=== PATIENT | female | born 1955 | race Caucasian/White ===

== ENCOUNTER 2016-07-09 14:43 | Inpatient (IN) | payer SELFPAY ==
--- NOTE | 2016-07-09 15:22 | EDPRACDOC ---
- General Information Chief Complaint: Generalized Weakness Stated Complaint: LOW HEMOGLOBIN - SENT FROM PCP Time Seen by Provider: 07/09/16 15:08 Mode Of Arrival: Car Home Medications: Home Medications Acetaminophen [Acetaminophen ER] 650 mg PO Q6 PRN 08/04/15 Aspirin (Enteric Coated) [Halfprin] 81 mg PO DAILY 08/04/15 Furosemide [Lasix] 80 mg PO BID 08/04/15 Hydroxychloroquine Sulfate [Plaquenil] 200 mg PO .BID SEE COMMENTS 08/04/15 Lisinopril/Hydrochlorothiazide [Lisinopril-Hctz 20-12.5 mg Tab] 1 tab PO DAILY 08/04/15 Metoprolol Succinate (XL) [Toprol Xl] 25 mg PO DAILY 08/04/15 Mycophenolate Mofetil [Cellcept] 1,500 mg PO BID 08/04/15 Prednisone [Deltasone, Orasone] 10 mg PO DAILY 08/04/15 Corticotropin [Acthar H.p] 80 unit IJ .MON & THURS 10/26/15 Allergies/Adverse Reactions: Allergies Allergy/AdvReac Type Severity Reaction Status Date / Time Penicillins Allergy Severe Hives* Verified 07/09/16 15:07 - History of Present Illness Onset: 5 days Exact Onset of Symptoms: Unknown Date Symptoms Started: 07/03/16 HPI: PATIENT HAS A HX OF LUPUS. HAS HAD LUPUS INDUCED ANEMIA IN THE PAST REQUIRING TRANSFUSIONS. SHE HAS BEEN WEAK FOR WEEKS AND WENT TO PCP YESTERDAY FOR EVALUATION. BLOOD WORK TODAY SHOWED A HGB OF 4. SHE DENIES BLOODY STOOL OR BLACK AND TARRY STOOL. DENIES PRIOR KIDNEY OR LIVER DISEASE Symptoms Started: Reports: Gradually Symptoms Description: Worsening Weakness: Bilateral: Generalized Symptom Severity: Reports: Does not affect activitiy Relevant History of: Reports: Anemia Associated signs and symptoms:: Reports: None ED Past Medical History - History Reviewed Yes Nurses notes reviewed and agree except as marked Travel Outside of [place] in the Last 3 Months?: No - Patient Medical History Cardiac History: Reports: Hypertension, Heart Attack, Cardiac Catheterization Respiratory History: Reports: COPD GI/ History: Reports: Ulcer Systemic History: Reports: Anemia Surgical History: Reports: Hysterectomy, Cardiac Catheterization, Hernia Surgery - Family Medical History Reports: Hypertension (FATHER), Cancer (MOTHER), Cardiac Disorders (FATHER). Denies: Diabetes, Stroke - Social Medical History Smoking Status: Heavy tobacco smoker (5 or more cigarettes/day or daily pipe/ cigar) Lives With: Family Lives In: Home EDM Review of Systems - Review of Systems ROS Negative Except as Marked: Yes All systems reviewed and were negative except as marked Constitutional: Fatigue. negative: Chills, Fever, Loss of Appetite, Weakness Eyes: No Symptoms Reported. negative: Redness, Blurred Vision, Double Vision, Discharge, Pain, Light Sensitive, Photophobia Ears: No Symptoms Reported. negative: Pain, Hearing Loss, Drainage, Ear Pulling Throat: No Symptoms Reported. negative: Pain, Swelling Nose: No Symptoms Reported. negative: Congestion, Bleeding, Discharge, Injection, Swelling, Deformity, Ecchymosis, Tender, Abrasion, Laceration Mouth: No Symptoms Reported. negative: Pain, Drooling Respiratory: No Symptoms Reported. negative: Cough, Brassy Cough, Barky Cough, Shortness of Breath, Wheezing, Hemoptysis Cardiovascular: No Symptoms Reported. negative: Chest Pain, Palpitations, Syncope, Edema, Orthopnea, PND, Skin Mottling, Cyanosis Gastrointestinal: No Symptoms Reported. negative: Pain, Constipation, Nausea, Vomiting, Diarrhea, Melena, Formula Intolerance Genitourinary: No Symptoms Reported. negative: Dysuria, Hematuria, Frequency, Discharge, Bleeding, Testicular Pain, Neurological: No Symptoms Reported. negative: Headache, Dizziness, Seizure, Numbness, Weakness, Speech Difficulty, Gait Difficulty Musculoskeletal: No Symptoms Reported. negative: Neck, Chestwall, Ribs, Back, Shoulder, Arm, Elbow, Forearm, Wrist, Hand, Pelvis, Hip, Femur, Knee, Leg, Ankle , Foot Integumentary: No Symptoms Reported. negative: Itching, Rash, Bruising, Wound Allergic/Immunologic: No Symptoms Reported. negative: Hives, Itching Hematologic: No Symptoms Reported. negative: Lymphadenopathy, Easy Bruising, Easy Bleeding Endocrine: No Symptoms Reported. negative: Weight Gain, Weight Loss Psychiatric: No Symptoms Reported. negative: Anxiety, Depression, Hallucinations, Insomnia, Suicidal - Physical Exam Constitutional: Alert (Awake) Oriented to: Time, Person, Place Last recorded Vital Signs: Last Vital Signs Temp 98.4 F 07/09/16 15:02 Pulse 74 07/09/16 15:02 Resp 20 07/09/16 15:02 BP 161/75 07/09/16 15:02 Pulse Ox 100 07/09/16 15:02 Oxygen Pulse Oxygen Saturation 100 O2 Device Room Air Oxygen Flow Rate Fraction of Inspired Oxygen ( FIO2) - HEENT Head: Normal ( normocephalic) Eye Exam: Pale Conjunctiva Oropharynx: Normal (Pharynx:Moist without exudate,Gums-no swelling) Tympanic Membrane: Normal ENT EAC: Normal TMJ: Normal Nose: No Symptoms Reported (septum midline) Neck: Normal (FROM, trachea at midline) - Respiratory/Cardiovascular Respiratory: Normal - CTA (BBS clear to auscultation without adventitious sounds ) Cardiovascular: Normal (RRR without murmur, gallop or rub) - GI Auscultation: Normal (NABS) Palpation: Normal (Soft,No rebound or guarding, non distended) Tenderness: Non tender López's Sign: Negative Rectal Exam: Normal, Heme negative stool Stool: Brown GI Comment: EDEMA ALONG PELVIS AND ABDOMINAL CINTRON - Bladder: Normal - Musculoskeletal Back: Normal (Non-Tender) Extremities: Edema (3 PLUS EDEMA) - Integumentary Skin: Warm, Dry, Pale Lymphatics: Normal (no adenopathy) - Neurologic Memory Impaired: Normal Motor Function: Normal (Normal tone, Pulses 2+ No cyanosis or edema, FROM) Cranial Nerve: Normal (CN II-X11 intact sensation, strength 5/5) Cerebellar: Normal Mood Description: Normal Thought: Coherent Perception: Normal - Results 07/09/16 15:12 07/09/16 15:12 - EKG EKG #1 EKG Time: 15:18 -: Yes EKG interpreted by me Rate: bpm: 77 Cascade: Normal Rhythm: Afib Hypertrophy: None ST: Normal EKG #2 EKG Time: 16:11 -: Yes EKG interpreted by me Rate: bpm: 76 Cascade: Normal Rhythm: NSR Block: None Hypertrophy: None ST: Nonsp (FLIPPED T-WAVES IN INFERIOR LEADS) - Departure Yes I personally saw and evaluated the patient. Disposition: Admit IP To This Hospital Condition: Fair Final Diagnosis: INDERTERMINATE TROPININ, Weakness, Severe anemia, Macrocytic anemia, Renal insufficiency Instructions: Weakness (General) Education/Counseling Given To: Patient Education/Counseling Given Regarding: Diagnosis, Treatment, Prognosis Referrals: Serina Bedolla MD [Primary Care Provider] - One Week Decision to Admit Time: 16:02 Decision to admit date: 07/09/16 Decision to admit: from ED - Physician Consulted Hospitalist Time Called: 16:02 Provider Called: Errol Olivarez Time Orientation And Mobility Specialist Returned Call: 16:02
[2016-07-09 15:32] LABS: MPV 7.6 fL (7.4-10.4)
[2016-07-09 15:36] LABS: BLOOD UREA NITROGEN 42 MG/DL (7-17); CALC CORRECTED 10.2 MG/DL (8.4-10.2); CALCULATED OSMOLALITY 262 MOs/Kg (270-290); CHLORIDE 102 mEq/L (98-107); GLUCOSE 91 MG/DL (70-99); SODIUM LEVEL 130 mEq/L (137-146); TOTAL PROTEIN 5.2 G/DL (6.3-8.2)
[2016-07-09 15:43] LABS: PARTIAL THROMB. TIME 86.1 SEC (22-35)
[2016-07-09 15:55] LABS: SEG NEUTROPHIL 68 % (45-76)
--- NOTE | 2016-07-09 16:07 | DIRPT ---
CLINICAL DATA: Shortness of breath. EXAM: PORTABLE CHEST 1 VIEW COMPARISON: October 26, 2015. FINDINGS: Stable cardiomegaly. No pneumothorax is noted. Increased left basilar opacity is noted concerning for infiltrate or atelectasis with mild associated pleural effusion. Right lung is clear. Bony thorax is unremarkable. IMPRESSION: Increased left basilar opacity concerning for infiltrate or atelectasis with mild associated pleural effusion. Electronically Signed By: Roland Woody Jr, M.D. On: 07/09/2016 16:05
[2016-07-09] MEDS ORDERED: [UNRECOGNIZED DRUG - OTHER] IJ SCH (16:15)
[2016-07-09 16:16] LABS: % SATURATION 32.2 % (15-50)
[2016-07-09] MEDS ORDERED: ALBUTEROL 0.083% 3 ML NEB NEB PRN (16:30)
[2016-07-09] MEDS ORDERED: ACETAMINOPHEN 325 MG/TAB TABLET PO PRN (16:30)
--- NOTE | 2016-07-09 17:05 | HISTPHYS ---
- Chief Complaint Weakness, cough - History of Present Illness This is a pleasant 61-year-old female with a history of SLE, CAD, CHF was being admitted to the hospital due to weakness and severe anemia. The patient does have a history of lupus, she is not on her medications completely due to lack of health insurance. She has had a prior episode of lupus associated anemia which was treated several years ago with multiple blood transfusions. She notes that for the last several days, she has been feeling weak she went to see her primary care physician yesterday and the lab drawn yesterday revealed severe anemia. She also tells me that she has had some cough and shortness of breath, with wheezing and rapidly breath for the last several days, and she felt like she may have a colder pneumonia developing. She also notes that she has had some swelling in her bilateral lower extremities for the last several days. She takes Lasix at home. - Medical History Cardiac History: Reports: Hypertension, Heart Attack, Cardiac Catheterization Respiratory History: Reports: COPD GI/ History: Reports: Ulcer Systemic History: Reports: Anemia - Surgical History Reports: Hysterectomy, Cardiac Catheterization, Hernia Surgery - Medictions/Allergies Allergies Penicillins Allergy (Severe, Verified 07/09/16 15:07) Hives* Home Medications Acetaminophen [Acetaminophen ER] 650 mg PO Q6 PRN 08/04/15 Aspirin (Enteric Coated) [Halfprin] 81 mg PO DAILY 08/04/15 Furosemide [Lasix] 80 mg PO BID 08/04/15 Hydroxychloroquine Sulfate [Plaquenil] 200 mg PO .BID SEE COMMENTS 08/04/15 Lisinopril/Hydrochlorothiazide [Lisinopril-Hctz 20-12.5 mg Tab] 1 tab PO DAILY 08/04/15 Metoprolol Succinate (XL) [Toprol Xl] 25 mg PO DAILY 08/04/15 Mycophenolate Mofetil [Cellcept] 1,500 mg PO BID 08/04/15 Prednisone [Deltasone, Orasone] 10 mg PO DAILY 08/04/15 Corticotropin [Acthar H.p] 80 unit IJ .MON & THURS 10/26/15 - Family History Reports: Hypertension (FATHER), Cancer (MOTHER), Cardiac Disorders (FATHER). Denies: Diabetes, Stroke - Social History Smoking Status: Heavy tobacco smoker (5 or more cigarettes/day or daily pipe/ cigar) - Review of Systems Yes All systems reviewed and were negative except as marked (And as mentioned in the history of present illness above.) - Physical Exam Vital Signs: Initial Vitals Temperature 98.4 F 07/09/16 15:02 Pulse Rate 74 07/09/16 15:02 Respiratory Rate 20 07/09/16 15:02 Blood Pressure 161/75 07/09/16 15:02 Pulse Oxygen Saturation 100 07/09/16 15:02 Constitutional: Alert (Awake, Fully oriented, well appearing. No apparent distress) Oriented to: Time, Person, Place - HEENT Head: Normal (normocephalic,atraumatic, trachea midline) Eye: Normal (EOMI, Sclera white) Oropharynx: Normal (moist) Nose: No Symptoms Reported (without discharge or bleeding) Respiratory: Diminished, Rales, Rhonchi, Tachypnea, Wheezes Cardiovascular: Normal (RRR, no murmurs, rubs or gallops) - GI Palpation: Normal (soft, non distended and nontender) - Musculoskeletal Extremities: Normal (normal tone, no cyanosis or edema), Edema (She has 2 to 3+ pitting edema in the bilateral lower extremities up to the mid thigh.) - Integumentary Skin: Normal (no rashes or lesions) - Neurologic Cranial Nerve: Normal (CN II-XII intact) Mood Description: Normal (Fully oriented and appropiate affect) - Focused CV Perfusion Exam Vital Signs: Last Vital Signs Temp 98.4 F 07/09/16 15:02 Pulse 67 07/09/16 16:57 Resp 18 07/09/16 16:57 BP 144/70 07/09/16 16:57 Pulse Ox 91 07/09/16 16:57 - Lab Results Laboratory Tests 07/09/16 07/09/16 07/09/16 15:12 15:12 15:12 WBC 11.5 H Hgb 4.5 L* Hct 13.7 L Plt Count 309 Retic Count (auto) INR 1.0 Sodium 130 L Potassium 4.4 BUN 42 H Creatinine 1.20 H Iron TIBC Troponin I 0.32 Total Protein 5.2 L Albumin 1.8 L 07/09/16 07/09/16 15:12 15:12 WBC Hgb Hct Plt Count Retic Count (auto) 13.6 H INR Sodium Potassium BUN Creatinine Iron 67.0 TIBC 208 L Troponin I Total Protein Albumin - Diagnostic Findings Chest x-ray: Stable cardiomegaly. No pneumothorax is noted. Increased left basilar opacity is noted concerning for infiltrate or atelectasis with mild associated pleural effusion. Right lung is clear. Bony thorax is unremarkable. 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 Note stool guaiac was negative. Will also check LDH and haptoglobin to confirm this diagnosis. In the meantime, will transfuse her a total of 4 units of blood today, along with IV Lasix as mentioned below due to fluid overload. Will also start p.o. prednisone, which can be tapered down once her hemoglobin starts to rise and her reticulocyte count improves. Will follow reticulocyte count and hemoglobin daily. (2) SLE (systemic lupus erythematosus) M32.9 - SYSTEMIC LUPUS ERYTHEMATOSUS, UNSPECIFIED Acute She has a history of lupus, she is taking her CellCept has not been able to afford her Plaquenil since she lost her health insurance. She has had lupus associated anemia in the past, treated with transfusion. She is also on chronic p.o. steroids. (3) CAD (coronary artery disease) I25.10 - ATHSCL HEART DISEASE OF [place] CORONARY ARTERY W/O ANG PCTRS Acute She has history of prior myocardial infarction. See elevated troponin below. (4) Elevated troponin R79.89 - OTHER SPECIFIED ABNORMAL FINDINGS OF BLOOD CHEMISTRY Acute She has an elevated troponin at 0.3 this afternoon. This is in the setting of her severe anemia, which I think is causing reduced myocardial profusion. The patient is without any chest pain, is hemodynamically stable. She is on a beta- amarilys at home, has a prior history of myocardial infarction. Will start the patient on other myocardial protective medications including aspirin, statin. Once her hemoglobin is improved will give her full-dose Lovenox anticoagulation. Could consider Cardiology consultation for possible stress testing once her hemoglobin is more acceptable range. (5) Acute heart failure I50.9 - HEART FAILURE, UNSPECIFIED Acute Patient presents with small amount of pulmonary edema and effusion, as well as impressive bilateral lower extremity edema. She takes Lasix at home, will diurese aggressively with IV Lasix, fluid restrict and keep her on a sodium restricted diet. Will use acute heart failure evidence based care order set. Will also obtain 2D Doppler with ECHO. (6) Renal insufficiency N28.9 - DISORDER OF KIDNEY AND URETER, UNSPECIFIED Acute She has some renal insufficiency today, likely a result of poor renal perfusion from her impressive anemia, as well as partially due to fluid overload related to her acute heart failure. Will transfuse blood as mentioned above, and also diurese her somewhat aggressively in an effort to improve renal perfusion. Recheck renal function daily, and will avoid other nephro toxic agents. (7) Weakness R53.1 - WEAKNESS Acute Likely due to her anemia, treating as above. I have placed on fall precautions, she is not to ambulate without assistance. (8) Bronchopneumonia J18.0 - BRONCHOPNEUMONIA, UNSPECIFIED ORGANISM Acute Patient not hypoxic, but has complaints of congestion and cough productive of sputum over the last few days. She also has chest x-ray abnormalities. As such, will treat with empiric IV azithromycin and Rocephin. - Plan In summary this patient is acutely and critically ill. The patient requires treatment of vital organ failure and measures to prevent further life- threatening deterioration of the above conditions. I personally reviewed and ordered lab testing, as well as imaging. I reviewed old medical records from previous hospitalizations as available, and spent the time mentioned below in critical care of this patient including counseling and coordination of care. Case Care Discussed with: Patient, Nursing Staff Total Time: 95 Critical Care: Yes Couseling Time (>50% in counseling/coordination): Yes
[2016-07-09] MEDS: CEFTRIAXONE 1 GM in D5W 100 ML IV SCH (17:30)
[2016-07-09] MEDS: NS/KCl 20 mEq 1,000 ML IV SCH (17:37)
[2016-07-09] MEDS ORDERED: AZITHROMYCIN 500 MG in D5W 250 ML IV SCH (18:00)
[2016-07-09] MEDS ORDERED: Vaccine Screening Complete SCH (18:00)
[2016-07-09] MEDS ORDERED: Pharmacy Order Set Alert SCH (18:00)
[2016-07-09] MEDS: PREDNISONE 20 MG TAB PO SCH (18:36)
[2016-07-09] MEDS: ATORVASTATIN 20 MG TAB PO SCH (18:36)
[2016-07-09] MEDS: FUROSEMIDE 40 MG/4 ML VIAL IV SCH (18:38)
[2016-07-09] MEDS ORDERED: DIPHENHYDRAMINE 50 MG/ML VIAL IV ONE (19:00)
[2016-07-09] MEDS ORDERED: DIPHENHYDRAMINE 50 MG/ML VIAL ONE (19:02)
[2016-07-09] MEDS: Mycophenolate Mofetil 250 MG CAP PO SCH (20:16)
[2016-07-09] MEDS: AZITHROMYCIN 500 MG in D5W 250 ML IV SCH (20:16)
[2016-07-10] MEDS: hydrALAZINE 20 MG/ML VIAL IV PRN ×3 (01:42→22:18)
[2016-07-10 05:33] LABS: BLOOD UREA NITROGEN 43 MG/DL (7-17); CALCULATED OSMOLALITY 262 MOs/Kg (270-290); CHLORIDE 103 mEq/L (98-107); GLUCOSE 140 MG/DL (70-99); LDL (calc.) 132.2 MG/DL (<100); SODIUM LEVEL 129 mEq/L (137-146); VLDL (calc.) 30.8 MG/DL (5-40)
[2016-07-10] MEDS: FUROSEMIDE 40 MG/4 ML VIAL IV SCH ×2 (05:42→16:16)
[2016-07-10] MEDS: NS/KCl 20 mEq 1,000 ML IV SCH ×2 (05:43→17:25)
[2016-07-10] MEDS ORDERED: FLU VACCINE (Afluria) 0.5 ML DOSE IM ONE (08:00)
[2016-07-10] MEDS: Mycophenolate Mofetil 250 MG CAP PO SCH ×2 (08:02→20:27)
[2016-07-10] MEDS: ATORVASTATIN 20 MG TAB PO SCH (08:03)
[2016-07-10] MEDS ORDERED: METOPROLOL (TOPROL-XL) 25 MG TAB PO SCH (09:00)
--- NOTE | 2016-07-10 09:09 | GENMEDPROG ---
Chief Complaint: Anemia Subjective Note: Tolerated blood transfusion yesterday, she is feeling much better this morning, with increased energy. Her legs are also feeling much better already, feeling less tight she was able to move them more easily. She is a sitting up at the bedside this morning eating breakfast. Notes Reviewed: Yes Events from last night noted and discussed with Clinical Staff Current Medication List: Reviewed DVT Prophylaxis: Yes - Physical Examination Vital Signs and I&O: Last Vital Signs Temp 98.5 F 07/10/16 07:41 Pulse 76 07/10/16 07:41 Resp 18 07/10/16 07:41 BP 178/94 07/10/16 07:41 Pulse Ox 99 07/10/16 06:41 Oxygen Pulse Oxygen Saturation 99 O2 Device Room Air Oxygen Flow Rate Fraction of Inspired Oxygen ( FIO2) Intake & Output 07/08/16 07/09/16 07/10/16 07/11/16 06:59 06:59 06:59 06:59 Intake Total 1183 388 Output Total 950 Balance 233 388 Patient's weight 66.395 kg General: Alert, Oriented x3, No acute distress, Well appearing, Well nourished, Other (Normal and appropriate affect) HEENT: EOMI (Sclera white) Neck: Normal Trachea alignment, Normal inspection Respiratory: Diminished, Rales, Rhonchi, Tachypnea, Wheezes Cardiovascular: Regular rate, No Gallops,Rubs/Murmurs GI: Normal bowel sounds, Soft, Non tender (non distended) Lab/DI/Studies Reviewed: Laboratory Tests 07/09/16 07/10/16 07/10/16 15:12 04:30 04:30 WBC 14.5 H Hgb 4.5 L* 8.9 L D Potassium 4.3 BUN 43 H Creatinine 1.20 H - Assessment (1) Severe anemia Acute D64.9 - ANEMIA, UNSPECIFIED Comment/Plan: Reason for admission, 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 Note stool guaiac was negative. Responded well to transfusion, will need to follow serial reticulocyte count. She was also started on p.o. prednisone, have consulted Dr. Porter of Oncology this morning for his input. (2) SLE (systemic lupus erythematosus) Acute M32.9 - SYSTEMIC LUPUS ERYTHEMATOSUS, UNSPECIFIED Comment/Plan: She has a history of lupus, she is taking her CellCept has not been able to afford her Plaquenil since she lost her health insurance. She has had lupus associated anemia in the past, treated with transfusion. She is also on chronic p.o. steroids. (3) CAD (coronary artery disease) Acute I25.10 - ATHSCL HEART DISEASE OF [place] CORONARY ARTERY W/O ANG PCTRS Comment/Plan: She has history of prior myocardial infarction. See elevated troponin below. (4) Elevated troponin Acute R79.89 - OTHER SPECIFIED ABNORMAL FINDINGS OF BLOOD CHEMISTRY Comment/ Plan: Patient's troponin was elevated to chowdary zone at the time of admission, has remained stable. At this point, I do not think she is experiencing and acute cardiac event, but rather this is related to her renal insufficiency. (5) Acute heart failure Acute I50.9 - HEART FAILURE, UNSPECIFIED Comment/Plan: Patient presents with small amount of pulmonary edema and effusion, as well as impressive bilateral lower extremity edema. She takes Lasix at home, will diurese aggressively with IV Lasix, fluid restrict and keep her on a sodium restricted diet. Will use acute heart failure evidence based care order set. Will also obtain 2D Doppler with ECHO. (6) Renal insufficiency Acute N28.9 - DISORDER OF KIDNEY AND URETER, UNSPECIFIED Comment/Plan: She has some renal insufficiency today, likely a result of poor renal perfusion from her impressive anemia, as well as partially due to fluid overload related to her acute heart failure. Will transfuse blood as mentioned above, and also diurese her somewhat aggressively in an effort to improve renal perfusion. Recheck renal function daily, and will avoid other nephro toxic agents. (7) Weakness Acute R53.1 - WEAKNESS Comment/Plan: Likely due to her anemia, treating as above. I have placed on fall precautions, she is not to ambulate without assistance. (8) Bronchopneumonia Acute J18.0 - BRONCHOPNEUMONIA, UNSPECIFIED ORGANISM Comment/Plan: Patient not hypoxic, but has complaints of congestion and cough productive of sputum over the last few days. She also has chest x-ray abnormalities. As such, will treat with empiric IV azithromycin and Rocephin. Case Care Discussed with: Patient, Consultants, Nursing Staff Total Time: 49
[2016-07-10] MEDS ORDERED: [UNRECOGNIZED DRUG - OTHER] IM ONE (09:35)
[2016-07-10] MEDS ORDERED: PNEUMOCOCCAL 0.5 ML VIAL IM ONE (09:35)
[2016-07-10] MEDS ORDERED: [UNRECOGNIZED DRUG - OTHER] IM ONE (09:35)
[2016-07-10] MEDS: ACETAMINOPHEN 325 MG/TAB TABLET PO PRN ×2 (11:26→20:38)
[2016-07-10] MEDS ORDERED: POTASSIUM CHLORIDE 20 MEQ TAB PO SCH (12:00)
[2016-07-10] MEDS: PREDNISONE 20 MG TAB PO SCH ×2 (12:08→16:16)
--- NOTE | 2016-07-10 14:03 | CAPUECHO ---
INDICATION: HEART FAILURE--DETERMINE EJECTION FRACTION HEIGHT: 162.6 cm (5 ft 4.0 in) WEIGHT: 64.4 kg (142.0 lbs) BP: 175/89 BSA: 1.26946 m MEASUREMENTS 2D RVIDd: 2.6 cm LVOT Diam: 1.9 cm LA Diam: 4.0 cm EF Biplane: 50.85 % LAESV MOD A4C: 31.6 ml LAESV MOD A2C: 60.9 ml LAESV Index (A-L): 30.11 ml/m M-MODE IVSd: 0.6 cm LVIDd: 5.9 cm LVPWd: 0.9 cm LVIDs: 4.1 cm EF(Teich): 56 % Ao Diam: 3.3 cm LA Diam: 3.9 cm DOPPLER MV E Neptali: 1.36 m/s MV A Neptali: 0.94 m/s MV PHT: 33.07 ms MVA By PHT: 6.65 cm LVOT Vmax: 1.14 m/s AV Vmax: 1.60 m/s ESHA Vmax, Pt: 2.01 cm TR Vmax: 2.98 m/s TR maxP mmHg RVSP: 55.20 mmHg FINDINGS ------- Procedure:2D images, m-mode, color and spectral Doppler were obtained and reviewed. ECG rhythm:Undetermined rhythm. Study quality:This was a technically adequate study. Per patient COPD, HX of CT, CATH, CABG x 2 200 2. Left Ventricle:The left ventricle is moderately dilated. There is borderline concentric left ventr icular hypertrophy. There is normal global left ventricular contractility. Overall left ventricu lar systolic function is low-normal with, an EF between 50 - 55 %. The diastolic filling pattern i ndicates impaired relaxation. Right Ventricle:The right ventricle is normal in size and function. Left Atrium:The left atrium is mildly dilated. Right Atrium:The right atrium is normal in size and function. Aortic Valve:The aortic valve is trileaflet and appears structurally normal. There is mild aortic valve sclerosis. Trace to mild aortic regurgitation. The aortic pressure half-time by doppler is 482ms. Mitral Valve:Normal appearing mitral valve. Mild mitral regurgitation is present. Tricuspid Valve:The tricuspid valve appears structurally normal. [id number] tricuspid regurg itation present. The right ventricular systolic pressure, as measured by Doppler, is 55mmHg. Pulmonic Valve:The pulmonic valve is normal. Trace/mild (physiologic) pulmonic regurgitation. Aorta:The aortic root, ascending aorta and aortic arch appear normal. IVC:The inferior vena cava is mildly dilated, <50% collapse. Pericardium:Echo free space may represent effusion or a pericardial fat pad. There is a small, gen eralized pericardial effusion present. CONCLUSIONS 1. The left ventricle is moderately dilated. 2. There is borderline concentric left ventricular hypertrophy. 3. Overall left ventricular systolic function is low-normal with, an EF between 50 - 55 %. 4. The diastolic filling pattern indicates impaired relaxation. 5. The left atrium is mildly dilated. 6. There is mild aortic valve sclerosis. 7. Trace to mild aortic regurgitation. 8. Mild mitral regurgitation is present. 9. [id number] tricuspid regurgitation present. 10. The right ventricular systolic pressure, as measured by Doppler, is 55mmHg. 11. The inferior vena cava is mildly dilated, <50% collapse. 12. There is a small, generalized pericardial effusion present. Pleural effusion suspected. Clnical correlation suggested Electronically Signed By: Ketan Singh MD -- Electronically Signed On: 14:03:11
[2016-07-10] MEDS: CEFTRIAXONE 1 GM in D5W 100 ML IV SCH (16:16)
[2016-07-10] MEDS: AZITHROMYCIN 500 MG in D5W 250 ML IV SCH (20:26)
--- NOTE | 2016-07-11 00:34 | PMOCONSULT ---
Date of Service:: 07/10/16 Medical Oncology Consultation: HISTORY OF PRESENT ILLNESS: The patient is a 61-year-old woman who I was asked to consult upon for severe anemia. Her history dates back 2 days ago when she presented to her primary care office with flu-like symptoms. The patient had earaches and a productive cough of clear phlegm. At that visit, she was given intramuscular antibiotics. The patient also claims she has been progressively short of breath. She claims she has been unable to walk 20-30 ft over these past few months without becoming profoundly short of breath. During her workup at her primary care office, routine labs were done, which showed a severely low hemoglobin. It was recommended that she go to the hospital immediately for further evaluation. However, as she felt very poorly and had been out all day, the patient wanted to go home to rest before coming into the hospital the following day. The patient did come into the ER the following morning; lab work done at that time showed an extremely low hemoglobin of only 4.4. Based upon this, the patient was admitted. She has been given 4 units of blood thus far. According to the patient, she denies having any overt forms of blood loss over the past few weeks, such as hemoptysis, hematemesis, hematochezia, hematuria, or vaginal bleeding. She recalls having anemia 3 years ago, for which 2 units of blood were given. The patient does have a diagnosis of lupus. She believes her low hemoglobin 3 years ago may have been during the time of an acute lupus flare. She chronically takes prednisone 10 mg daily, which she has been on for at least the past 10 years. To her knowledge, there is no family history of any underlying hematologic disorders. PAST MEDICAL HISTORY: Lupus, COPD, hypertension, coronary artery disease PAST SURGICAL HISTORY: Bilateral fem-pop bypass, hysterectomy, left inguinal hernia surgery, benign right breast lumpectomy CURRENT MEDICATIONS: Acetaminophen Acetaminophen ER 650 mg PO Q6 PRN 08/04/15 Aspirin (Enteric Coated) Halfprin 81 mg PO DAILY 08/04/15 Furosemide Lasix 80 mg PO BID 08/04/15 Hydroxychloroquine Sulfate Plaquenil 200 mg PO .BID SEE COMMENTS 08/04/15 Lisinopril/Hydrochlorothiazide Lisinopril-Hctz 20-12.5 mg Tab 1 tab PO DAILY 11/12 Metoprolol Succinate (XL) Toprol Xl 25 mg PO DAILY 08/04/15 Mycophenolate Mofetil Cellcept 1,500 mg PO BID 08/04/15 Prednisone Deltasone, Orasone 10 mg PO DAILY 08/04/15 Corticotropin Acthar H.p 80 unit IJ .MON & THURS 10/26/15 ALLERGIES: Penicillin FAMILY HISTORY: Her mother from an unspecified genitourinary malignancy. Her father from a heart attack. She had 2 brothers, 1 of whom in a motor vehicle accident. Her other brother from alcoholic cirrhosis. She has 3 sisters, all of whom are relatively healthy. SOCIAL HISTORY: The patient was born and raised in [facility]. She currently lives in town. She has 1 child and 1 grandchild. 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 The patient has smoked as much as a pack of cigarettes daily for the past 35 years. She denies a history of alcoholism. REVIEW OF SYSTEMS: BANQUET CHEF: The patient has occasional headaches, but denies changes in hearing, vision , balance or coordination. PULMONARY: The patient has a productive cough of clear phlegm and dyspnea upon exertion. CARDIAC: The patient denies angina, heart palpitations, or heart failure issues. GI: The patient has mild constipation, but denies nausea, vomiting, diarrhea, hematochezia, or weight loss. : The patient denies hematuria, dysuria, or increased urinary frequency. MUSCULOSKELETAL: The patient denies arthralgias, myalgias, or joint effusions. ENDOCRINE: The patient denies diabetes, hypercholesterolemia, thyroid, or pituitary gland disorders. PSYCHIATRIC: The patient denies depression, anxiety, or other mood disorders. DERMATOLOGIC: The patient denies petechia, purpura, but claims to bruise easily. CONSTITUTION: The patient denies fevers, night sweats, but has a decreased energy level. PHYSICAL EXAMINATION: Vital signs include a temperature of 98, pulse 71, respirations 20, blood pressure 184/88 GENERAL: The patient is alert and oriented x3, in no acute distress. HEENT EXAM: Clear oropharynx with no exudate or lesions appreciated. LUNG EXAM: Clear to auscultation bilaterally. CARDIAC EXAM: Regular rate and rhythm. No murmurs, rubs, or gallops. ABDOMINAL EXAM: Soft, nontender and nondistended; no hepatosplenomegaly. EXTREMITY EXAM: No clubbing, cyanosis, or edema. LYMPH NODE SURVEY: No palpable cervical, supraclavicular, axillary, or inguinal lymphadenopathy. NEUROLOGIC EXAM: Cranial nerves II-XII and cerebellar functions are grossly intact. SKIN EXAM: No petechiae, purpura or other abnormal skin lesions are appreciated. LABORATORY DATA: Laboratory Tests 07/09/16 07/09/16 07/09/16 13:48 15:12 15:12 WBC 10.8 Hgb 4.4 L* Hct 12.8 L Plt Count 300 Retic Count (auto) 13.6 H Haptoglobin Lactate Dehydrogenase Antibody Identification WARM AUTO-ANTIBODY CRISTEL, IgG Interpret Positive H CRISTEL, Poly Interpret Positive H 07/09/16 07/09/16 15:12 15:12 WBC Hgb Hct Plt Count Retic Count (auto) Haptoglobin < 10 L Lactate Dehydrogenase 737 H Antibody Identification CRISTEL, IgG Interpret CRISTEL, Poly Interpret ASSESSMENT AND PLAN: A 61-year-old woman whose labs all point to her having autoimmune hemolytic anemia. This is based upon her having an undetectable haptoglobin, an elevated LDH, and a positive direct Dale test. As mentioned previously, the patient denies having any overt forms of blood loss, which suggests her severe anemia is due to hemolysis. She is currently taking prednisone 40 mg b.i.d.. Over these next few weeks, this patient will be placed on a slow taper to prevent her autoimmune hemolytic anemia from flaring back up and leading to a severely low hemoglobin over time. I will likely decrease her prednisone dose by 10 mg per week until she gets back to her 10 mg daily dose. If her autoimmune hemolytic anemia resurfaces while going through her prednisone taper, the patient understands a splenectomy would be next, which is approximately 80% effective in preventing recurrent bouts of autoimmune hemolytic anemia. Per her history and physical exam, I do not get the sense she is in an acute lupus flare; this appears to be idiopathic autoimmune hemolytic anemia. In preparation for her possibly needing a splenectomy in the near future, I do want this patient to receive the pneumococcal, meningococcal, and Haemophilus influenza type B vaccinations while in the hospital. While in the hospital, her hemoglobin should be kept near 10. I have already scheduled to see her on July 18, to follow the status of her autoimmune hemolytic anemia as an outpatient. The patient understands all the plans discussed at the bedside this afternoon and is in agreement with them.
[2016-07-11 06:10] VITALS: BMI 26.1
[2016-07-11 06:39] LABS: MPV 7.9 fL (7.4-10.4)
[2016-07-11 06:44] LABS: BLOOD UREA NITROGEN 44 MG/DL (7-17); CALCIUM 7.9 MG/DL (8.4-10.2); CALCULATED OSMOLALITY 261 MOs/Kg (270-290); CHLORIDE 102 mEq/L (98-107); GLUCOSE 120 MG/DL (70-99); SODIUM LEVEL 129 mEq/L (137-146)
[2016-07-11] MEDS: ACETAMINOPHEN 325 MG/TAB TABLET PO PRN (07:11)
[2016-07-11] MEDS: NS/KCl 20 mEq 1,000 ML IV SCH (07:14)
[2016-07-11] MEDS: PREDNISONE 20 MG TAB PO SCH (07:44)
[2016-07-11] MEDS: FUROSEMIDE 40 MG/4 ML VIAL IV SCH (07:45)
[2016-07-11] MEDS ORDERED: [UNRECOGNIZED DRUG - OTHER] IM ONE (08:00)
[2016-07-11] MEDS ORDERED: [UNRECOGNIZED DRUG - OTHER] IM ONE (08:00)
--- NOTE | 2016-07-11 08:58 | PCM.DCS92 ---
- Final/Secondary Discharge Diagnosis (1) Autoimmune hemolytic anemia Acute D59.1 - OTHER AUTOIMMUNE HEMOLYTIC ANEMIAS Present on Admission: Yes Comment: After evaluation by hematology, it seems her anemia is due to an autoimmune hemolytic anemia, rather than an acute exacerbation of her SLE. She will follow-up with Dr. Porter in his clinic. (2) Elevated troponin Acute R79.89 - OTHER SPECIFIED ABNORMAL FINDINGS OF BLOOD CHEMISTRY Present on Admission: Yes Comment: Patient's troponin was elevated to chowdary zone at the time of admission, & has remained stable. At this point, I do not think she is experiencing an acute cardiac event, but rather this is related to her renal insufficiency. (3) Renal insufficiency Acute N28.9 - DISORDER OF KIDNEY AND URETER, UNSPECIFIED Present on Admission: Yes Comment: She has some renal insufficiency, likely a result of poor renal perfusion from her impressive anemia, as well as partially due to fluid overload related to her acute heart failure. She was transfused blood as mentioned above, and also diuresed somewhat aggressively in an effort to improve renal perfusion. Rechecked renal function daily, reduced SHARI-inhibitor dose and avoid other nephrotoxic agents. (4) CKD (chronic kidney disease), stage III Chronic N18.3 - CHRONIC KIDNEY DISEASE, STAGE 3 (MODERATE) Present on Admission: Yes Comment: Presumably due to the effects of her Lupus. (5) Bronchopneumonia Acute J18.0 - BRONCHOPNEUMONIA, UNSPECIFIED ORGANISM Present on Admission: Yes Comment: Patient was not hypoxic, but had complainted of congestion and cough productive of sputum over the last few days. She also had chest x-ray abnormalities. As such, she was treated with empiric IV azithromycin and Rocephin for 3 days, and discharged home on PO Ceftin. (6) Diastolic CHF, acute Acute I50.31 - ACUTE DIASTOLIC (CONGESTIVE) HEART FAILURE Present on Admission: Yes Comment: DUE TO ACUTE ANEMIA (7) SLE (systemic lupus erythematosus) Chronic M32.9 - SYSTEMIC LUPUS ERYTHEMATOSUS, UNSPECIFIED Present on Admission: Yes other unspecified M32.8 - Other forms of systemic lupus erythematosus Comment: She has a history of lupus, she is taking her CellCept, but has not been able to afford her Plaquenil since she lost her health insurance. She is also on chronic p.o. steroids. it does not appear that an ESR or CRP has been ordered during this admission to determine the status of her SLE treatment. We will request these prior to discharge. She may follow-up with Dr. Bedolla regarding her SLE. Discharge Disposition: Home Discharge Condition: Improved Cognitive Discharge Status: Unimpaired Fuctional Discharge Status: Independent Physician Follow up/Referrals: Joel Porter MD [Staff Physician] - One Week Serina Bedolla MD [Primary Care Provider] - 1-2 weeks New Prescriptions: Albuterol Sulfate MDI [Proventil HFA] 2 puff INH Q4-6H PRN #1 inhaler PRN Reason: Wheezing Atorvastatin Calcium [Lipitor] 20 mg PO DAILY #30 tablet Cefuroxime Axetil [Ceftin] 500 mg PO BID #14 tablet Furosemide [Lasix] 40 mg PO BID #60 tablet Lisinopril [Prinivil] 5 mg PO DAILY #30 tab POTASSIUM CHLORIDE Tablet [K-DUR 20 mEq Tablet*] 20 meq PO DAILY@1200 #30 tab.er.prt Prednisone [Deltasone, Orasone] 20 mg PO DAILY #60 tablet Prednisone [Deltasone, Orasone] 40 mg PO DAILYWM #7 tablet Discharge Home Medication List Acetaminophen [Acetaminophen ER] 650 mg PO Q6 PRN 08/04/15 [History Confirmed Last Taken 07/09/16 1300MG] Aspirin (Enteric Coated) [Halfprin] 81 mg PO DAILY 08/04/15 [History Confirmed 07/09/16 Last Taken 07/08/16] Metoprolol Succinate (XL) [Toprol Xl] 25 mg PO DAILY 08/04/15 [History Confirmed 07/09/16 Last Taken 07/08/16] Mycophenolate Mofetil [Cellcept] 1,500 mg PO BID 08/04/15 [History Confirmed 04/15 Last Taken 07/08/16] Corticotropin [H.p. Acthar] 80 unit IJ .MON & THURS 10/26/15 [History Confirmed 07/09/16 Last Taken 07/08/16] Albuterol Sulfate MDI [Proventil HFA] 2 puff INH Q4-6H PRN #1 inhaler 07/11/16 [ Rx Last Taken Unknown] Atorvastatin Calcium [Lipitor] 20 mg PO DAILY #30 tablet 07/11/16 [Rx Last Taken Unknown] Cefuroxime Axetil [Ceftin] 500 mg PO BID #14 tablet 07/11/16 [Rx Last Taken Unknown] Furosemide [Lasix] 40 mg PO BID #60 tablet 07/11/16 [Rx Last Taken Unknown] Lisinopril [Prinivil] 5 mg PO DAILY #30 tab 07/11/16 [Rx Last Taken Unknown] POTASSIUM CHLORIDE Tablet [K-DUR 20 mEq Tablet*] 20 meq PO DAILY@1200 #30 tab.er.prt 07/11/16 [Rx Last Taken Unknown] Prednisone [Deltasone, Orasone] 20 mg PO DAILY #60 tablet 07/11/16 [Rx Last Taken Unknown] Prednisone [Deltasone, Orasone] 40 mg PO DAILYWM #7 tablet 07/11/16 [Rx Last Taken Unknown] O2 Device: Room Air Diet at Discharge: Heart Healthy Activity: As Tolerated Call Office For: Worsening Symptoms, Fever over 101 F Discontinue use of:: Alcohol, All Illegal Substances, All Types of Tobacco - DC Summary Notes Hospital Course Note:: Discharge summary on patient named MICK HERNANDEZ admitted to [facility] on 07/09/16 by Errol Olivarez MD. Date of discharge is []. This is a pleasant 61-year-old female with a history of SLE, CAD, CHF was being admitted to the hospital due to weakness and severe anemia. The patient does have a history of lupus, she is not on her medications completely due to lack of health insurance. She has had a prior episode of lupus associated anemia which was treated several years ago with multiple blood transfusions. She notes that for the last several days, she has been feeling weak she went to see her primary care physician yesterday and the lab drawn yesterday revealed severe anemia. She also tells me that she has had some cough and shortness of breath, with wheezing and rapidly breath for the last several days, and she felt like she may have a cold or pneumonia developing. She also notes that she has had some swelling in her bilateral lower extremities for the last several days. She takes Lasix at home. The patient was markedly anemic with a hemoglobin of 4.4 at the time of admission. She was transfused 4 units of packed red cells. She has some renal insufficiency, likely a result of poor renal perfusion from her impressive anemia, as well as partially due to fluid overload related to her acute heart failure. She was transfused blood as mentioned above, and also diuresed somewhat aggressively in an effort to improve renal perfusion. Rechecked renal function daily, reduced SHARI-inhibitor dose and avoid other nephrotoxic agents. Patient was not hypoxic, but had complained of congestion and cough productive of sputum for several days. She also had chest x-ray abnormalities. As such, she was treated with empiric IV azithromycin and Rocephin for 3 days, and discharged home on PO Ceftin. She was seen in consultation by Dr. Porter of the hematology oncology service. After evaluation by hematology, it seems her anemia is due to an autoimmune hemolytic anemia, rather than an acute exacerbation of her SLE. She will follow-up with Dr. Porter in his clinic. She is also on chronic p.o. steroids. it does not appear that an ESR or CRP has been ordered during this admission to determine the status of her SLE treatment. We will request these prior to discharge. She may follow-up with Dr. Bedolla regarding her SLE. Total Time: 45 min Code: 18650 (>30min.) - Physical Exam Vital Signs: Last Vital Signs Temp 97.8 F 07/11/16 06:06 Pulse 70 07/11/16 06:06 Resp 18 07/11/16 06:06 BP 165/75 07/11/16 06:06 Pulse Ox 97 07/10/16 22:07 Oxygen Pulse Oxygen Saturation 97 O2 Device Room Air Oxygen Flow Rate Fraction of Inspired Oxygen ( FIO2) Constitutional: No apparent distress, Alert (Awake, Fully oriented, well appearing. No apparent distress) Oriented to: Time, Person, Place - HEENT Head: Normal (normocephalic,atraumatic, trachea midline) Eye: Normal (EOMI, Sclera white) Oropharynx: Normal (moist) Tympanic Membrane: Dull ENT EAC: Normal Nose: No Symptoms Reported (without discharge or bleeding) - Respiratory/Cardiovascular Respiratory: Normal - CTA, Diminished Cardiovascular: Normal - GI Auscultation: Normal Palpation: Normal (soft, non distended and nontender) Tenderness: Non tender Rectal Exam: Heme negative stool - Musculoskeletal Back: Normal Extremities: Normal (normal tone, no cyanosis or edema) - Integumentary Skin: Normal (no rashes or lesions) Lymphatics: Normal - Neurologic Memory Impaired: Normal Motor Function: Normal Cranial Nerve: Normal Cerebellar: Normal Mood Description: Normal (Fully oriented and appropiate affect) Thought: Coherent Perception: Normal
[2016-07-11] MEDS: Mycophenolate Mofetil 250 MG CAP PO SCH (09:18)
[2016-07-11] MEDS: ATORVASTATIN 20 MG TAB PO SCH (09:19)
[2016-07-11] MEDS ORDERED: METOPROLOL (TOPROL-XL) 50 MG TAB PO ONE (09:30)
[2016-07-11 10:10] VITALS: BP 183/90; PULSE 77; TEMP 97.4
[2016-07-12] MEDS ORDERED: PREDNISONE 20 MG TAB PO SCH (08:00)
== END 2016-07-11 13:25 | disposition home or self-care (01) | DRG 808 ==
LOC: ED 14:43 → PCU 16:30 → MASU 07-10 17:06
PROVIDERS: ADMIT Internal Medicine; ATTEND Internal Medicine
PROC: 30233N1 Transfusion of Nonautologous Red Blood Cells into Peripheral Vein, Percutaneous Approach (ICD-10-PCS; principal; 2016-07-09)
DX: D59.1 Other autoimmune hemolytic anemias (principal); J18.0 Bronchopneumonia, unspecified organism; I50.31 Acute diastolic (congestive) heart failure; N18.3 Chronic kidney disease, stage 3 (moderate); M32.9 Systemic lupus erythematosus, unspecified; J44.0 Chronic obstructive pulmonary disease with (acute) lower respiratory infection; I12.9 Hypertensive chronic kidney disease with stage 1 through stage 4 chronic kidney disease, or unspecified chronic kidney disease; I25.2 Old myocardial infarction; Z88.0 Allergy status to penicillin; Z79.899 Other long term (current) drug therapy; Z79.82 Long term (current) use of aspirin; F17.210 Nicotine dependence, cigarettes, uncomplicated; I25.10 Atherosclerotic heart disease of native coronary artery without angina pectoris; Z23 Encounter for immunization
CPT/HCPCS: 36415; 36430; 71010; 80048; 80053; 80061; 82270; 82607; 82728; 82746; 83010; 83540; 83550; 83615; 83735; 83880; 84484; 85007; 85027; 85045; 85610; 85651; 85730; 86140; 86850; 86870; 86880; 86900; 86901; 86920; 90471; 90656; 90732; 90733; 93005; 93306; 94640; 97161; 99223; 99284; G0237; J0360; J0456; J0696; J1200; J1940; J3490; J7040; J7060; J7070; P9016